=== PATIENT | male | born 1975 | race African-American/Black ===

== ENCOUNTER 2019-08-06 08:07 | Emergency (ER) | payer BC ==
[~2019-08-06] VITALS: Ht 182.8 cm; Wt 84.4 kg
[2019-08-06] MEDS ORDERED: NAPROSYN500 MG PO ×2 (09:27→10:11)
[2019-08-06] MEDS ORDERED: TYLENOL325 M1 PO ×2 (09:27→10:11)
[2019-08-06] MEDS ORDERED: CYCLOBENZAPRINE10 MG PO ×2 (09:27→10:11)
[2019-08-06] MEDS ORDERED: CHANTIX1 M1 PO (10:11)
== END 2019-08-06 11:05 | disposition home or self-care (01) ==
LOC: ED 08:07
DX: S39.92XA Unspecified injury of lower back, initial encounter (principal); W00.9XXA Unspecified fall due to ice and snow, initial encounter; Y93.89 Activity, other specified; Y92.008 Other place in unspecified non-institutional (private) residence as the place of occurrence of the external cause; Y99.8 Other external cause status